=== PATIENT | female | born 1985 | race Caucasian/White ===

== ENCOUNTER 2024-11-07 09:52 | Emergency (ER) | payer OTHER, SELFPAY ==
--- NOTE | ~2024-11-07 | XR_ITS ---
EXAMINATION: XR foot RT min 3V DATE: 11/07/2024 10:44 INDICATION: Stepped on a needle TECHNIQUE: Dorsoplantar, two oblique and lateral views of the right foot were obtained. COMPARISON: None. FINDINGS: Alignment is normal. No fracture. Joint spaces are normal. Soft tissues are unremarkable. No evident radiopaque foreign bodies. IMPRESSION: 1. Normal right foot radiographs with no osseous abnormality or radiopaque foreign bodies. Reviewed, dictated and finalized at location A. IMPRESSION: 1. Normal right foot radiographs with no osseous abnormality or radiopaque fore ign bodies.
[2024-11-07 10:02] VITALS: BP 154/85; PULSE 75; RESP 20; TEMP 36.8; O2SAT 100
[2024-11-07 10:05] VITALS: BP 139/94; PULSE 78; RESP 16; TEMP 36.9; O2SAT 99
--- OUTSIDE RECORDS SUMMARY | 2024-11-07 10:52 | XMS_ITS | Continuity of Care Document ---
Author Organization [facility] Address [address] [place] [address] Phone Care Team Providers Care Language Instructor Name Role Phone Noah CHAWLA, William Unavailable Unavailable Allergies, Adverse Reactions, Alerts Substance Reaction Status Criticality No Known allergies Medications Medication Instructions Dosage Effective Dates (start - stop) Status Comments Zyrtec 10 mg Tab take 1 tablet (10MG) by oral route every day 10 MG - Active Astepro 0.15 % (205.5 mcg) Nasal [place] 2 sprays in each nostril twice per day - Active fluticasone 50 mcg/Actuation Nasal [place], Susp inhale 2 sprays by Intranasal route every day in each nostril - Active Bepreve 1.5 % Eye Drops instill 1 drop by ophthalmic route 2 times every day into affected eye(s) 1.00 drop - Active Zaditor 0.025 % Eye Drops instill 1 drop by ophthalmic route 2 times every day into affected eye(s) 1.00 drop - Active ProAir HFA 90 mcg/Actuation Aerosol Inhaler inhale 2 puff by Inhalation route every 4 - 6 hours as needed 2.00 puff - Active Procedures Procedure Date Perc Test PF Pre/Post Bronchodlator Albuterol comp unit Intradermal Test New (Level 4) OFFICE/OUTPATIENT VISIT Ashwini Advance Directives Directive Yes / No Effective Date File Name Resuscitation Not Answered N/A N/A Life Support Not Answered N/A N/A Intubation Not Answered N/A N/A Antibiotics Not Answered N/A N/A IV Fluid Support Not Answered N/A N/A Tube Feed Not Answered N/A N/A Other Directive N/A N/A WARNING:The information contained in this section is historical and is provided for information only and does not constitute a legal document or any assurance that the information is still accurate. Please verify the information with the perdomo of the legal document before using it for clinical purposes. Encounters Encounter Description Practice Location Reason(s) For Visit Diagnoses Date Provider Providers Copied on Encounter New (Level 4) OFFICE/OUTPA TIENT VISIT [facility], [address] [place], [place] [address], [id number], tel:[phone] [facility] allergies (chief complaint) Allergic rhinitis, cause unspecifiedAcute atopic conjunctivitisAST HMA,UNSPECIFIED TYPE, UNSPECIFIED 1 Noah Thomas. [address] [place] [address], [place] [address], [place], [place], [id number] , . tel:[phone] Referring Provider: William Matthew, [address] [place] [address] [address], [place], [address] . tel:[phone] Family History Family Member Type Diagnosis Age At Onset Problem (finding) No family history of As thma Problem (finding) No family hist ory of Allergies, food Problem (finding) No family history of Ec zema Maternal grandmother Problem (finding) breast cancer Mother Problem (finding) Allergies Mother Problem (finding) malignant neop lasm of breast in first degree relative Payers Payer name Insurance type Covered democrat ID Authordeannea maximino(s) Lynsye CI [id number] [facility] [id number] Social History Type Description Quantity Date Captured Comments Alcohol Use Details Unknown Caffeine Use Details Unknown Tobacco Use Status No Information Smoking Status No Information Sex Female Vital Signs Date / Time: Height Weight BMI Pulse Rate Blood Pressure Temperature Respiratory Rate Body Surface Area Head Circumference Head Circ. Percentile Wt./Albin. Percentile BMI percentile Pulse Ox Inhaled Ox 10:11 AM 62.00 in 58.000 kg (128.00 lbs) 23.3 8 kg/m eter (2) 78 /min 118/62 mm[Hg] Chief Complaint And Reason For Visit From encounter dated '09/22/2010 09:40'. allergies (chief complaint). 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 Her symptoms are worse in spring and and fall. She does nothave much problems in summer in winter unless she is around animals or dusting. She has tried Claritin, Kala, and Zyrtec have not helped. She has not been on prescription nose sprays. She is rarely treated for sinus or ear infections. She used albuterol in childhood before exercise but has not used one in years. She notes that running causes chest tightness and dyspnea. She is not sure if she has prolonged cough with URIs. She denies oral allergy symptoms. Reason For Referral Reason For Referral No Information History Of Present Illness Encounter Date Complaint History Of Prese nt Illness No Information Functional Status Date Functional Assessmen t No Information Instructions Date Instruction Additional Infor mation No Information Assessments Type Assessment Date No Information Mental Status Date Cognitive Assessment Normal Orientation Patient Care Teams Name Effective Dates (start - stop) Status Members No Information
--- NOTE | 2024-11-07 11:20 | ED.GENADULT ---
HPI - General Adult General Chief complaint: Environmental Exposure Stated complaint: step on a needle Time Seen by Provider: 11/07/24 10:02 Source: patient Mode of arrival: ambulatory Limitations: no limitations History of Present Illness HPI narrative: Patient is a 39-year-old female who presents the ED with concern for a needlestick injury. 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 The needle went through her R sandal into her R 1st toe pad. It did break skin. Unsure what type of needle it was. Patient denies significant pain or numbness. Tetanus is unknown. Related Data Allergies Allergy/AdvReac Type Severity Reaction Status Date / Time No Known Allergies Allergy Verified 11/07/24 10:10 Review of Systems Review of Systems: All systems reviewed & are unremarkable except as noted in HPI. All systems reviewed & are unremarkable except as noted in HPI and below Exam Narrative: GENERAL: Well appearing, well-nourished, non-toxic, in no acute distress. HEAD: Normocephalic, atraumatic. RESPIRATORY: Airway patent, respirations nonlabored. CARDIOVASCULAR: Regular rate and rhythm without murmurs, rubs, or gallops. Pedal pulses intact MUSCULOSKELETAL: Moves all extremities. No gross deformities. No obvious punctures wounds to R 1st toe. No active bleeding or drainage. SKIN: Warm, dry, normal color. NEURO: A&O X3. Speech clear. No ataxic movements. PSYCHIATRIC: Appropriate mood and affect. Normal interaction. Course Vital Signs Vital signs: Vital Signs Temperature 98.3 F 11/07/24 10:02 Pulse Rate 75 11/07/24 10:02 Respiratory Rate 20 11/07/24 10:02 Blood Pressure 154/85 H 11/07/24 10:02 Pulse Oximetry 100 11/07/24 10:02 Temperature 98.4 F 11/07/24 10:05 Pulse Rate 78 11/07/24 10:05 Respiratory Rate 16 11/07/24 10:05 Blood Pressure 139/94 H 11/07/24 10:05 Pulse Oximetry 99 11/07/24 10:05 Oxygen Delivery Room Air 11/07/24 10:05 Medical Decision Making MDM Narrative Medical decision making narrative: X-ray of right foot negative for foreign body. Tetanus updated in the ED. Given puncture wound through the plantar foot and sandal, patient will be started on prophylactic antibiotics. Keflex and Cipro started in the ED. Needlestick profile sent. Patient was advised she will need to follow-up with for future laboratory testing at 3 and 6 month intervals. Given return precautions. She agrees with plan. Discharged in stable condition. Medical Records Medical records reviewed: Yes I reviewed the external patient's medical records. Vital Signs Vital Signs: Vital Signs Temperature 98.3 F 11/07/24 10:02 Pulse Rate 75 11/07/24 10:02 Respiratory Rate 20 11/07/24 10:02 Blood Pressure 154/85 H 11/07/24 10:02 Pulse Oximetry 100 11/07/24 10:02 Temperature 98.4 F 11/07/24 10:05 Pulse Rate 78 11/07/24 10:05 Respiratory Rate 16 11/07/24 10:05 Blood Pressure 139/94 H 11/07/24 10:05 Pulse Oximetry 99 11/07/24 10:05 Oxygen Delivery Room Air 11/07/24 10:05 Lab Data Lab results reviewed: Yes I reviewed the patient's lab results. Labs: Lab Results 11/07/24 Range/Units 11:34 Hep Bs Antigen Pending Hepatitis C Ab Screen Pending HIV 1&2 Ab/P24 Ag 4thGn Pending Imaging Data Attestation: I personally reviewed and interpreted this imaging study as follows: Radiologist's impression: ITS Impressions Foot X-Ray 11/07/24 10:46 IMPRESSION: 1. Normal right foot radiographs with no osseous abnormality or radiopaque foreign bodies. Discharge Plan Discharge Clinical Impression: Needle stick injury of foot Puncture wound of foot Qualifiers: Encounter type: initial encounter Laterality: right Qualified Code(s): S91.331A - Puncture wound without foreign body, right foot, initial encounter Patient Disposition: Home Condition: Stable Instructions: Antibiotic Form, Needle Stick Injuries (ED), Puncture Wound in the Foot (ED) Additional Instructions: Take antibiotics as prescribed for needlestick injury. Follow-up with your primary care doctor for future laboratory evaluation regarding transmitted infections. It is typically recommended that you receive repeat laboratory testing at 3 and 6 month intervals. Patient Language: Lithuanian Prescriptions: New ciprofloxacin HCl 500 mg tablet 500 mg PO Q12H 7 Days Qty: 14 0RF cephalexin 500 mg capsule 500 mg PO Q6H 7 Days Qty: 28 0RF Follow-up/Referrals: David Matthews MD [Physician] - (PRIMARY CARE) UNKNOWN,DOCTOR [Primary Care Provider] - Time of Disposition: 11:21
--- OUTSIDE RECORDS SUMMARY | 2024-11-07 11:28 | XMS_ITS | Continuity of Care Document ---
Author Organization [facility] Address [address] [place] [address] Phone Care Team Providers Care Sap Administrator Name Role Phone Noah CHAWLA, William Unavailable Unavailable Allergies, Adverse Reactions, Alerts Substance Reaction Status Criticality No Known allergies Medications Medication Instructions Dosage Effective Dates (start - stop) Status Comments Zyrtec 10 mg Tab take 1 tablet (10MG) by oral route every day 10 MG - Active Astepro 0.15 % (205.5 mcg) Nasal [place] 2 sprays in each nostril twice per day - Active fluticasone 50 mcg/Actuation Nasal [place], Susp inhale 2 sprays by Intranasal route [...] VISIT [facility], [address] [place], [place] [address], [id number], tel:[phone] [facility] allergies (chief complaint) Allergic rhinitis, cause unspecifiedAcute atopic conjunctivitisAST HMA,UNSPECIFIED TYPE, UNSPECIFIED 1 Noah Thomas. [address] [place] [address], [place] [address], [place], [place], [id number] , . tel:[phone] Referring Provider: William Matthew, [address] [place] [address] [address], [place], [address] . tel:[phone] Family History Family Member Type Diagnosis Age At Onset Problem (finding) No family history of As thma Problem (finding) No family hist ory of Allergies, food Problem (finding) No family history of Ec zema Maternal grandmother Problem (finding) breast cancer Mother Problem (finding) Allergies Mother Problem (finding) malignant neop lasm of breast in first degree relative Payers Payer name Insurance type Covered alliance party ID Authordeannea maximino(s) Lynsey CI [id number] 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 Her symptoms are worse in spring and [...]
[2024-11-07] MEDS: CEPHALEXIN 500 MG CAPSULE PO (11:42)
[2024-11-07] MEDS: CIPROFLOXACIN 500 MG TAB PO (11:42)
[2024-11-07] MEDS: TETANUS,DIPHTHERIA,AC PERTUSSIS ADULT (0.5 ML) BOOSTRIX IM (11:42)
--- NOTE | 2024-11-07 11:49 | PC.NURSE ---
Pt. states she is ready to leave and comfortable will checking results on [facility]. NACHO Dumont notified. Pt. given a brochure on how to set up [employer] account.
[2024-11-07 12:20] VITALS: BP 134/90; PULSE 70; RESP 14; O2SAT 98
[2024-11-07 12:25] LABS: Hepatitis B Surface Antigen Negative (Negative)
[2024-11-07 12:42] LABS: HIV 1/2 Ab P24 Ag Result Negative (Negative); Hepatitis C Virus Antibody Negative (Negative)
== END 2024-11-07 12:21 | disposition home or self-care (01) ==
PROVIDERS: Emergency Provider Physician Assistant
DX: S91.331A Puncture wound without foreign body, right foot, initial encounter (principal); W27.3XXA Contact with needle (sewing), initial encounter; Z23 Encounter for immunization
CPT/HCPCS: 36415; 73630; 86703; 86803; 87340; 90471; 90715; 99283; A9270; G0432